=== PATIENT | male | born 1990 | race African-American/Black ===

== ENCOUNTER 2019-07-31 01:18 | Emergency (ER) | payer SELFPAY ==
[~2019-07-31] VITALS: Ht 170.2 cm; Wt 86.6 kg
[2019-07-31 01:21] VITALS: Ht 170.2 cm; Wt 86.6 kg
[2019-07-31 03:24] VITALS: BP 133/99
== END 2019-07-31 03:24 | disposition home or self-care (01) ==
LOC: ED 01:18
DX: J45.901 Unspecified asthma with (acute) exacerbation (principal)
CPT/HCPCS: J1100; J7613